=== PATIENT | female | born 1985 | race Caucasian/White ===

== ENCOUNTER 2018-01-15 05:34 | Day surgery (SDC) | payer BC, OTHER ==
[~2018-01-15] VITALS: Ht 160 cm; Wt 111.6 kg
--- NOTE | ~2018-01-15 | PATH ---
[facility] [address] [place] [address] PATHOLOGY RPT PROCEDURE Name: MARICRUZ RODRIGUEZ Room #: DEP [facility] [place] M.R.#: [id number] Admission: 01/15/18 Date of : 85 Discharge: 01/15/18 Report #: [id number] Path Case #: [id number] [facility] Accession Number: [id number] . 01 Material submitted: . PERINEAL CYSTS X 3 . 01 Clinical history: . Cysts x3 vulva perineum. . 02 Diagnosis: "Perineal cyst x 3", excision: - Skin and subcutaneous tissue with epidermal inclusion cyst, focally ruptured. (CLW:db; 01/18/2018) LBQ/01/18/2018 . 02 Electronically signed: . Jennifer Cristobal MD, Pathologist NPI- [id number] . 01 Gross description: . Received in formalin labeled "Long, Maricruz, perineal cysts x3" are three intact marcelo-white cystic structures which range from 1.3 x 0.6 x 0.5 cm to 3.2 x 2.5 x 1.7 cm. The cystic structures each have a marcelo-white portion of skin attached, which ranges from 1.7 x 0.7 x 0.3 cm to 3.6 x 1.7 x 0.2 cm. Upon sectioning, the cysts contain yellow-marcelo grumous material. [employer] sections are submitted in cassette A1. ([facility] [place]; 01/17/2018) SYC/SYC . 02 Pathologist provided ICD-10: L72.0 . 02 CPT . 081800 Performed at: [address], [place], [place] [id number] MD José Miguel Wagner MD Phone: [phone] Performed at: [address] [id number] MD Summer Casillas MD Phone: [phone]
--- NOTE | ~2018-01-15 | O ---
[facility] [place] [address] OPERATIVE REPORT Name: MARICRUZ RODRIGUEZ Room #: DEP [facility].#: [id number] Admission: 01/15/18 Attend Phys: Artemio Wilkins MD Discharge: 01/15/18 Date of : 85 Report #: [id number] THIS REPORT FOR: //name// CC: JOE physician/PCP Artemio Wilknis DATE OF SERVICE: 01/15/2018 PREOPERATIVE DIAGNOSIS: Multiple vulvar cysts/Bartholin cysts. POSTOPERATIVE DIAGNOSIS: Multiple vulvar cysts/Bartholin cysts. PROCEDURE PERFORMED: Excision of multiple Bartholin cysts. ANESTHESIA: IV sedation, local 0.25% Marcaine. SURGEON: Artemio Wilkins MD COMPLICATIONS: None. ESTIMATED BLOOD LOSS: 10 mL. FINDINGS: There were 2 cysts that were about a centimeter in size superiorly along the vulva on each side. A larger cyst located left side inferiorly, measures 4 cm. PROCEDURE NOTE: With the patient in lithotomy position under IV sedation, a timeout was performed. Preoperative IV antibiotic was administered. A 0.25% Marcaine was used to anesthetize the skin and subcutaneous tissue surrounding the cysts. The lesions were excised in an elliptical manner with skin over it. Dissection was then carried underneath the subcutaneous tissue. The cyst was completely removed. The 2 superior ones were performed first. Then, the left lower one which was very large was then removed. All of these were removed intact. The entire wall was removed. Skin was then closed with 5-0 nylon in a running locking fashion. The incisions all came together well. Topical antibiotic was applied, 4 x 4 was placed over the area and then mesh panty was then placed. The patient tolerated procedure well. <ELECTRONICALLY SIGNED> By: Artemio Wilkins MD 01/17/18 1105 00 24 Artemio Wilkins MD /nt
[~2018-01-15 05:34] MED LIST: ACETAMINOPHEN325 M1 PO; IBUPROFEN 600600 M1 PO; MYLANTA TABLET1 TA1 PO; PERCOCET 5-3251 EACH PO
[2018-01-15 12:00] VITALS: BP 173/99
[2018-01-15] MEDS ORDERED: NORCO 5-325 TA1 EACH PO (14:19)
[2018-01-15 14:30] VITALS: BP 173/99
== END 2018-01-15 14:55 | disposition home or self-care (01) ==
LOC: OR 05:34 → TBA 05:34 → OR 10:09
DX: L72.0 Epidermal cyst (principal); N90.7 Vulvar cyst; F41.9 Anxiety disorder, unspecified; Z98.890 Other specified postprocedural states; Z79.891 Long term (current) use of opiate analgesic; Z87.891 Personal history of nicotine dependence
CPT/HCPCS: 50010; 50101; 50386; 50417; 56526; 62110; 62850; 70005